=== PATIENT | male | born 1995 | race Two or more races ===

== ENCOUNTER 2024-06-02 21:38 | Emergency (ER) | payer BC, SELFPAY ==
[2024-06-02 21:41] VITALS: BMI 37.6
[2024-06-02 22:23] VITALS: BP 143/88; PULSE 70; RESP 18; TEMP 36.9; O2SAT 99
--- NOTE | 2024-06-02 22:34 | XR_ITS ---
Examination: CT brain head without contrast. 2-D sagittal coronal reconstructions Date and time of exam:June 02, 2024 1044 hrs. Indications: Headaches 2 months with the bump at the top of the head 3 weeks CTDI: vol (mGy):54.3 DLP: (mGycm):1122 Technique: Multiple CT axial sections of the brain have been obtained, 5 mm slice thickness. Contrast has not been administered. 2-D sagittal, coronal reconstructions have been obtained Low dose protocols were performed. One or more of the following dose reduction techniques were used; automated exposure control, adjustment of the mA and/or KV according to patient size, use of iterative reconstruction technique. Findings: No significant ventricular enlargement. Soft tissue mass 2.7 x 3.4 x 2.5 cm destroying posterior left parietal bone, extending inside the cranial vault at the posterior cerebral convexity on the left No mass effect upon the ventricular system No acute hemorrhage Impression: 2.7 x 3.4 x 2.5 cm soft tissue mass destroying posterior left parietal bone Differential would include primary soft tissue tumor, osseous metastatic lesion Recommend MRI brain follow-up pre and postcontrast
--- NOTE | 2024-06-02 22:34 | PD.EDRME ---
Rapid Medical Screening Exam E Arrival date/time: 06/02/24 21:38 28-year-old male reports with complaints of a painful growth from the top of his scalp x 3 weeks Chief Complaint: Headache Time Seen by Provider: 06/02/24 21:43 Vital signs: Vital Signs Temperature 98.5 F 06/02/24 22:23 Pulse Rate 70 06/02/24 22:23 Respiratory Rate 18 06/02/24 22:23 Blood Pressure 143/88 H 06/02/24 22:23 Pulse Oximetry (%) 99 06/02/24 22:23 Oxygen Delivery Method Room Air 06/02/24 22:23
[2024-06-03 00:25] VITALS: BP 145/82; PULSE 79; RESP 18; TEMP 36.6; O2SAT 100
--- NOTE | 2024-06-03 00:33 | EDNOTE_ITS ---
ED Headache RME/HPI General Chief Complaint: Headache Stated Complaint: BUMP ON HEAD Time Seen by Provider: 06/02/24 21:43 Arrival date/time: 06/02/24 21:38 RME / HPI RME / HPI Narrative: 06/02/24 21:38 28-year-old male reports with complaints of a painful growth from the top of his scalp x 3 weeks ----- Dr. Wadsworth?s Main ED Evaluation: 28yo male with no significant past medical history presents to the ED for an abnormal growth to the top of his head. Patient states he started noticing an abnormal growth to the top of his head 3 weeks ago. He states he's been having sharp headaches over the last 2 months that have been progressively getting worse. He states he took ibuprofen without any alleviation of symptoms, so he came in for evaluation. Denies any N/V, dizziness or any other associated symptoms. No known allergies. Related Data Home Medications ?Medication ?Instructions ?Recorded ?Confirmed sumatriptan succinate 25 mg tablet 25 mg PO Q2H PRN mi graine headache 06/03/24 06/03/24 Previous Rx's ?Medication ?Instructions ?Recorded acetaminophen 325 mg capsule 975 mg (3 x 325 mg) PO Q6 H PRN 10/09/19 Held on 06/03/24. pain #30 caps Instructions: Doctor's Order ibuprofen 800 mg tablet 800 mg PO TID PRN pain #30 t abs 10/09/19 Allergies Allergy/AdvReac Type Severity Reaction Status Date / Time No Known Allergies Allergy Verified 06/02/24 21:39 Review of Systems Review of Systems Systems Reviewed: All systems reviewed, normal except as documented Past Medical History Social History SMOKING STATUS: Never smoker ED Exam Narrative Physical exam: GENERAL APPEARANCE: alert and oriented x 4, well-developed, well-nourished, no acute distress VITALS: All vitals were reviewed and the pulse ox is 99% on room air, which is normal according to my interpretation. HEENT: Normocephalic, atraumatic; soft tissue mass to the parietal skull, pupils equal, round, reactive to light; EOMI; mucous membranes pink, moist; oropharynx clear NECK: Supple LUNGS: CTABL; no wheezes, no rales, no rhonchi HEART: Regular rate, regular rhythm; normal S1, S2; no murmurs ABDOMEN: non distended; normal BS; soft, no tenderness, no guarding, no rebound; no masses, no organomegaly, no hernia BACK: no CVA tenderness EXTREMITIES: atraumatic; no edema NEUROLOGIC: awake; alert and oriented x4; cranial nerves II-XII grossly intact; no focal sensory or motor deficits PSYCHIATRIC: appropriate mood and affect SKIN: warm, dry, normal color; no rashes Course Quality Measures none Orders Category Date Time Status CT head/brain wo con Stat Exams 06/02/24 22:34 Completed Vital Signs Vital signs: Vital Signs Temperature 98.5 F 06/02/24 22:23 Pulse Rate 70 06/02/24 22:23 Respiratory Rate 18 06/02/24 22:23 Blood Pressure 143/88 H 06/02/24 22:23 Pulse Oximetry (%) 99 06/02/24 22:23 Oxygen Delivery Method Room Air 06/02/24 22:23 Headache MDM Narrative MDM Narrative:: Scribe Attestation: 06/03/24 - Alexandra Birmingham am scribing for and in the presence of Dr. Wadsworth. 0039: Spoke with [facility] transfer center. Awaiting on a callback from the neurosurgeon at this time. [facility] is unable to get ahold of their neurosurgeon. Will attempt to call [facility] regarding transfer. 0113: Spoke with [facility]'s transfer center. Awaiting callback from the neurosurgeon at this time. Patient data External records reviewed:: [facility] previous records (Per chart review, patient has no relevant previous ED visits or admissions to this facility.) Clinical information provided by:: patient Social determinants that could affect healthcare access:: none Patient has the following chronic illnesses:: none How is presenting disease/condition affected by chronic disease/condition?: no chronic disease Evaluation data The following diagnostics were reviewed and interpreted by me:: radiology exam(s) Lab and/or radiology exams considered but not ordered:: none Interpretation Summary: [facility] Report Signed Patient: JERONIMO ANN Record#: [id number] Birthdate: 1995 Age/Sex: 28 / M Location: [facility] Attending Dr: Ordering Physician: Juan Antonio Lamas PA-C Date of Service: 06/02/24 Procedure(s): CT head/brain wo con Accession Number(s): [id number] cc: Juan Miguel Parikh MD; NO PRIMARY/FAMILY,PHYSICIAN; Juan Antonio Lamas PA-C~ Examination: CT brain head without contrast. 2-D sagittal coronal reconstructions Date and time of exam:June 02, 2024 1044 hrs. Indications: Headaches 2 months with the bump at the top of the head 3 weeks CTDI: vol (mGy):54.3 DLP: (mGycm):1122 Technique: Multiple CT axial sections of the brain have been obtained, 5 mm slice thickness. Contrast has not been administered. 2-D sagittal, coronal reconstructions have been obtained Low dose protocols were performed. One or more of the following dose reduction techniques were used; automated exposure control, adjustment of the mA and/or KV according to patient size, use of iterative reconstruction technique. Findings: No significant ventricular enlargement. Soft tissue mass 2.7 x 3.4 x 2.5 cm destroying posterior left parietal bone, extending inside the cranial vault at the posterior cerebral convexity on the left No mass effect upon the ventricular system No acute hemorrhage Impression: 2.7 x 3.4 x 2.5 cm soft tissue mass destroying posterior left parietal bone Differential would include primary soft tissue tumor, osseous metastatic lesion Recommend MRI brain follow-up pre and postcontrast Dictated By: Juan Miguel Parikh MD Signed By: <Electronically signed by Juan Miguel Parikh MD in OV> 06/02/24 4626 Medications / Prescriptions Medications or Prescriptions considered but not ordered:: none Medication administrations:: see above, if any Consultations Consultation(s) initiated? (list below): Yes Consultation #1 (Physician, Specialty, Details): See MDM narrative. Diagnosis Differential diagnosis headache: other (lipoma, benign tissue mass, carcinoma, sarcoma) Most likely diagnosis given after review of the tests above:: see below Admission Indicated Admission indicated?: not indicated Explain why admission is indicated or not indicated:: Pending callback from [facility] at the time of signout Admission Request Was there a request for admission?: No Disposition Plan Disposition Plan: other (specify) (Signed out to Dr. Thomas at 0600 pending possible transfer/callback from [facility].) Discharge Plan Prescriptions/Referrals Prescriptions/Med Rec: No Action ibuprofen 800 mg tablet 800 mg PO TID PRN (Reason: pain) Qty: 30 0RF acetaminophen 325 mg capsule 975 mg PO Q6H PRN (Reason: pain) Qty: 30 0RF sumatriptan succinate 25 mg tablet 25 mg PO Q2H PRN (Reason: migraine headache) Patient Comments: TAKE 1 TABLET BY MOUTH AT ONSET OF MIGRAINE NEEDED. MAY REPEAT DOSE IN 2 HOURS. MAX DOSE 200 MG DAILY Referrals: No Primary/Family,Physician [Primary Care Provider] - In 1 week Problem List Clinical Impression: Skull mass Patient/Caregiver Discharge Instructions Print Language: Yi
--- NOTE | 2024-06-03 01:02 | PC.NURSE ---
FAXED INFORMATION TO [facility]. [facility] NURSE TALK TO DR. HANSEN.
--- NOTE | 2024-06-03 01:04 | PC.NURSE ---
[facility] TRANSFER NURSE CALLED AND ASKED IF WE CAN TRY [facility] BECAUSE NEUROSURGEON IS UNAVAILABLE AT THIS TIME.
--- NOTE | 2024-06-03 01:08 | PC.NURSE ---
FAXED INFORMATION TO [facility].
--- NOTE | 2024-06-03 01:14 | PC.NURSE ---
CALLED [facility], TIANNA FROM TRANSFER NURSE TALKING TO DR. HANSEN.
[2024-06-03 01:20] VITALS: BP 138/84; PULSE 76; RESP 18; TEMP 36.7; O2SAT 99
--- NOTE | 2024-06-03 02:26 | PC.NURSE ---
NASRA JOHNSON FROM [facility] CALLED AND NOTIFIED US THAT THERE NEUROSURGERY DOCTOR CAN'T HANDLE PT CASE , SUGGESTED TO CALL [facility]AY[facility] ODEN.
[2024-06-03 06:02] VITALS: BP 132/81; PULSE 75; RESP 16; TEMP 36.9; O2SAT 98
--- NOTE | 2024-06-03 06:16 | PC.NURSE ---
TIANNA FROM [facility] CALLED AND INFORMED ME THAT THEY WILL PRESENT CASE TO NEUROLOGY THIS AM.
[2024-06-03 07:25] VITALS: BP 150/96; PULSE 74; RESP 18; TEMP 36.7; O2SAT 98
--- NOTE | 2024-06-03 07:30 | PC.NURSE ---
Received report from Jose Alberto JOHNSON and assumed care of patient. Patient resting in bed with significant other at bedside. Requesting pain medication and states pain 8/10. Awaiting further orders and possible transfer.
[2024-06-03] MEDS: ACETAMINOPHEN w/COD 300-30 TABLET 2 TAB PO (07:49)
[2024-06-03] MEDS: IBUPROFEN TAB 400 MG TABLET 800 MG PO (07:50)
[2024-06-03] MEDS: ONDANSETRON ODT 4 MG TABRAP PO (07:50)
--- NOTE | 2024-06-03 09:40 | PC.NURSE ---
Patient states pain 10/10. Informed ER provider and received verbal order for 2mg hydromorphone IV one time for ambulance transfer.
[2024-06-03] MEDS: HYDROmorphone INJ 2 MG/ML VIAL IVP (09:45)
[2024-06-03 09:49] VITALS: BP 141/79; PULSE 69; RESP 18; TEMP 36.9; O2SAT 97
--- NOTE | 2024-06-03 09:57 | PC.NURSE ---
Report given to Vera JOHNSON at [facility]. Ambulance on scene fro patient transfer.
--- NOTE | 2024-06-03 10:06 | EDNOTE_ITS ---
Emergency Room Addendum Addendum Narrative: I took over the care from Dr. HANSEN at 6 AM on 06/03/2024, see her notes for complete H&P and ED course. I reviewed all diagnostic test results. At this point, diagnoses include brain/skull mass. I [facility] About the presentation and exam and diagnostics and treatments here. And need of further care there. Will accept the patient. During my watch, the patient remained stable. Tang Thomas MD
== END 2024-06-03 10:00 | disposition short-term general hospital (02) ==
PROVIDERS: Emergency Provider Emergency Medicine
DX: R22.0 Localized swelling, mass and lump, head (principal)
CPT/HCPCS: 70450; 96374; 99285; J3490; Q0162; A9270